=== PATIENT | male | born 1945 | race Caucasian/White ===

== ENCOUNTER 2022-03-01 00:23 | Emergency (ER) | payer OTHER, BC ==
[~2022-03-01] VITALS: Ht 177.8 cm; Wt 93.0 kg
[2022-03-01 01:00] VITALS: BP_SYST 126
--- NOTE | 2022-03-01 01:00 | NUR ---
Patient to ER bed 08 to gown for evaluation. Side rails up. Report given to NATASHA Greene
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
--- NOTE | 2022-03-01 01:21 | NUR ---
Patient arrives with a report number from [facility]. [facility] #[id number] badge #[id number]
--- NOTE | 2022-03-01 01:27 | NUR ---
ER Dr. Lazcano at bedside examining patient.
[2022-03-01] MEDS ORDERED: ACETAMINOPHEN/CODEINE 300 MG-30 MG TABLET PO ONE (01:45)
[2022-03-01] MEDS ORDERED: NALOXONE HCL 0.4 MG/ML AMP (NARCAN) IVP PRN (01:45)
[2022-03-01] MEDS ORDERED: IBUPROFEN 400 MG TABLET PO ONE (01:45)
--- NOTE | 2022-03-01 02:50 | NUR ---
patient refused medications. notified
[2022-03-01] MEDS ORDERED: CYCL10TA24 PO (02:56)
[2022-03-01] MEDS ORDERED: HYDR-3917 PO (02:56)
--- NOTE | 2022-03-01 03:04 | NUR ---
Patient given written and verbal discharge instructions and verbalizes understanding. ER MD discussed with patient the results and treatment provided. Patient in stable condition. ID arm band removed. IV catheter removed intact and dressing applied, no active bleeding. Rx of FLEXVALENTIN NORCO given. Patient educated on pain management and to follow up with PMD. Pain Scale . Opportunity for questions provided and answered. Medication side effect fact sheet provided.
== END 2022-03-01 03:03 | disposition home or self-care (01) ==
LOC: SED 00:23
DX: S39.012A Strain of muscle, fascia and tendon of lower back, initial encounter (principal); S16.1XXA Strain of muscle, fascia and tendon at neck level, initial encounter; I10 Essential (primary) hypertension; V49.88XA Car occupant (driver) (passenger) injured in other specified transport accidents, initial encounter; Y93.89 Activity, other specified; Y92.89 Other specified places as the place of occurrence of the external cause; Y99.8 Other external cause status
CPT/HCPCS: 72040-TC; 72100-TC; 99284

== ENCOUNTER 2022-06-03 11:36 | Day surgery (SDC) | payer BC ==
[~2022-06-03] VITALS: Ht 175.3 cm; Wt 89.4 kg
[~2022-06-03 11:36] MED LIST: CYCL10TA24 PO; HYDR-3917 PO
[2022-06-03] MEDS ORDERED: MEPERIDINE 100 MG INJ. 100 MG/ML VIAL ONE (12:55)
[2022-06-03] MEDS ORDERED: SIMETHICONE 40 MG/0.6 ML ML ONE (12:55)
[2022-06-03] MEDS ORDERED: MIDAZOLAM HCL 5 MG/5 ML VIAL ONE (12:56)
[2022-06-04 12:07] VITALS: BP_SYST 117
== END 2022-06-03 14:25 | disposition home or self-care (01) ==
LOC: SDS 11:36 → SMU 12:02 → SDS 12:23
PROVIDERS: ATTEND Internal Medicine Gastroenterology
DX: Z12.11 Encounter for screening for malignant neoplasm of colon (principal); K57.30 Diverticulosis of large intestine without perforation or abscess without bleeding; K64.9 Unspecified hemorrhoids; Z20.822 Contact with and (suspected) exposure to COVID-19; Z79.899 Other long term (current) drug therapy
CPT/HCPCS: 45378; 87426; 36415; 99152; G0378; J2250; J2175